=== PATIENT | male | born 1970 | race Caucasian/White ===

== ENCOUNTER → 2024-09-26 12:24 | Outpatient (REF) | payer BC, SELFPAY | LOC: HWRAD 12:24 | PROVIDERS: ATTENDING PHYSICIAN Family Medicine | DX: R91.1 Solitary pulmonary nodule (principal) | CPT/HCPCS: 71250 ==

== ENCOUNTER → 2024-09-29 09:42 | Outpatient (REF) | payer BC, SELFPAY | LOC: RCS 09:42 | PROVIDERS: ATTENDING PHYSICIAN Family Medicine | DX: R07.89 Other chest pain (principal) | CPT/HCPCS: 93017 ==

== ENCOUNTER → 2024-10-03 12:43 | Outpatient (REF) | payer BC, SELFPAY | LOC: HWRCS 12:43 | PROVIDERS: ATTENDING PHYSICIAN Family Medicine | DX: I51.7 Cardiomegaly (principal) | CPT/HCPCS: 93306 ==